=== PATIENT | female | born 1975 | race Two or more races ===

== ENCOUNTER 2018-04-06 16:26 | Emergency (ER) | payer OTHER ==
[2018-04-06] MEDS: DIAZEPAM 5 MG TAB PO (19:20)
[2018-04-06] MEDS: KETOROLAC 30 MG INJ IM (19:23)
== END 2018-04-06 19:52 | disposition home or self-care (01) ==
LOC: FTE 16:26
DX: M54.6 Pain in thoracic spine (principal); M54.2 Cervicalgia; E11.9 Type 2 diabetes mellitus without complications
CPT/HCPCS: 71045; 81025; 96372; 99284-25